=== PATIENT | male | born 1950 | race Asian ===

== ENCOUNTER 2017-02-14 12:29 | Emergency (ER) | payer MEDICARE, MEDICAID ==
[~2017-02-14] VITALS: Ht 170.2 cm; Wt 67.3 kg
[~2017-02-14 12:29] MED LIST: ACAR25TA2 PO; FLUT100D2 IH; METF10002 PO; MIRT30TA PO; PRED20TA3 PO
[2017-02-14 12:33] VITALS: BP 140/73
[2017-02-14 12:42] LABS: GLUCOSE,POINT OF CARE 186 MG/DL (70-110)
[2017-02-14] MEDS ORDERED: POVIDONE-IODINE 10% 15 ML SOLUTION UD TP ONE (13:15)
[2017-02-14] MEDS ORDERED: LIDOCAINE HCL BUFFERED 1% 20 ML VIAL INJ ONE (13:15)
[2017-02-14] MEDS ORDERED: BACITRACIN 0.9 GM PACKET OINTMENT TP ONE (14:45)
[2017-02-14] MEDS ORDERED: CefTRIAXone SODIUM 1 GM/VIAL IM ONE (15:00)
[2017-02-14] MEDS ORDERED: LIDOCAINE HCL/PF 1% 2 ML VIAL IM ONE (15:00)
== END 2017-02-14 15:20 | disposition home or self-care (01) ==
LOC: EMS 12:30
DX: L03.012 Cellulitis of left finger (principal); E11.9 Type 2 diabetes mellitus without complications; F32.9 Major depressive disorder, single episode, unspecified; J45.909 Unspecified asthma, uncomplicated
CPT/HCPCS: 10060; 82962; 96372; 99283; J0696; J3490 ×2